=== PATIENT | male | born 1955 | race Caucasian/White ===

== ENCOUNTER → 2017-02-21 | Outpatient (CLI) | payer OTHER | LOC: HRAD 15:25 | PROVIDERS: ATTEND Specialist | DX: R59.9 Enlarged lymph nodes, unspecified (principal) ==

== ENCOUNTER → 2017-02-21 | Outpatient (CLI) | payer OTHER ==
--- NOTE | 2017-02-21 16:07 | RADRPT ---
EXAM DATE/TIME: 02/21/2017 00:00 [facility] COMPARISON: No previous studies available for comparison. OUTSIDE STUDY REVIEWED: INDICATIONS : CT Guided Biopsy of Mediastinal Lymph Node RECOMMENDATION: I have reviewed the PET scan and discussed with both Dr. Barry Flores and Dr. Artis Plaza. Patient will be referred to Dr. Barry Flores for a Veran bronchoscopic lymph node biopsy. Thank you for this consultation. . Mateusz Hernandez MD FACR on February 21, 2017 at 16:03 Board Certified Radiologist. This report was verified electronically.
== END ==
LOC: HRAD 14:24
PROVIDERS: ATTEND Specialist
DX: R59.9 Enlarged lymph nodes, unspecified (principal)
CPT/HCPCS: 76140

== ENCOUNTER 2017-04-17 09:40 | Day surgery (SDC) | payer OTHER ==
--- NOTE | 2017-04-17 08:53 | MB ---
cc: GUSTAVO MOTTA M.D., AWAIS M. MD DOOLIN,Chace TATE DATE OF CONSULTATION 04/14/2017 HISTORY Mr. Dubon is a 61-year-old white male who had a right lung resection in April of last year at [facility] for an adenocarcinoma. Subsequent follow up has been with Dr. Nieves. Original CTs and PET scans were negative for metastatic disease and, although I do not have the surgical pathology report, apparently there was no evidence of metastatic disease. It was classified as a T2 N0 M0 lesion. The patient has been followed carefully and a follow-up scan revealed new mediastinal lymph node enlargement and a very small left lower lobe nodule about 0.4 mm. The patient was originally referred for percutaneous needle aspiration but that was not possible due to the small size of the lung lesion. He subsequently had a PET/CT which revealed uptake throughout the mediastinum but minimal uptake in the lung and some uptake in the right supraclavicular region. He is now referred for possible EBUS. The patient at the present time has no symptoms. He continues to smoke half a pack of cigarettes a day and has smoked his entire adult life 40-50 pack-years. Pulmonary functions do reveal mild obstruction with a moderate reduction in diffusion. However, he has no symptoms. No shortness of breath or cough. No congestion or chest pain. He has had no hemoptysis, in fact he has had no symptoms since his original diagnosis last April. PAST MEDICAL HISTORY 1. Severe lumbosacral degenerative arthritis with multiple levels involved. He takes a gabapentin and tramadol routinely. 2. He has also recently treated for hepatitis C by Dr. Motta. No other major surgeries. No prior history of cardiovascular disease. SOCIAL HISTORY He lives with his girlfriend. Originally from [place], has lived here all of his life, currently living in [place] with his elderly mother whom he helps to care for. 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 Currently unemployed. Smoking noted. Denies current alcohol use. Drank heavily in the past. REVIEW OF SYSTEMS Weight is stable. No chest pain. No swelling in his legs. No abdominal complaints such as reflux. Back pain, chronic. PHYSICAL EXAMINATION VITAL SIGNS: 118/70, pulse 63, temperature is 96, RR 18, sat 97% on room air. HEENT: Sclerae anicteric. Pharynx is clear. NECK: Neck veins are flat. He has a palpable firm lymph node in the right supraclavicular region, none on the left. CHEST: Diminished with some minimal scattered congestion. No wheezing. Regular rhythm. No harsh murmur. No audible S3. ABDOMEN: Soft. No organomegaly. EXTREMITIES: No peripheral edema or cyanosis. Mr. Dubon has uptake on PET scan and an enlarging left lower lobe nodule as well as mediastinal adenopathy and now a palpable lymph node in the right supraclavicular region. This is certainly suspicious for metastatic disease. In light of the palpable lymph node on the right, I will speak to radiology and see if we can biopsy that first because obviously if that is malignant it will establish the diagnosis. If not, biopsying the 1.4 cm left lower lobe pulmonary nodule probably would be easily accessible as well and we would proceed with EBUS but at the present time that equipment is down. We have a call into Radiology today. I have also spoken to Dr. Nieves today and hopefully we can quickly establish the diagnosis and then proceed with therapeutic considerations. Dr. Nieves is scheduling him an appointment and follow-up next week and I will see him back in several weeks too to see if any further diagnostic intervention is warranted. R. MD NANCIE Kwan/JULIUS /11:37 AM /8:46 AM
[2017-04-17 10:27] VITALS: BP 140/80; PULSE 52; RESP 14; TEMP 97; O2SAT 100
[2017-04-17 11:25] VITALS: BP 147/84; PULSE 47; RESP 18; TEMP 98.3; O2SAT 100
[2017-04-17 11:40] VITALS: BP 158/85; PULSE 53; RESP 18; O2SAT 100
[2017-04-17] MEDS ORDERED: LIDOCAINE HCL 1% PF 30 ML VIAL ONE (11:48)
--- NOTE | 2017-04-18 07:54 | RADRPT ---
EXAM DATE/TIME: 04/17/2017 10:11 [facility] COMPARISON: No previous studies available for comparison. EXTERNAL COMPARISON: [facility], CT THORAX, W CONTRAST, Apr 03 2017, PET/CT - TUMOR METABOLISM, January 07, 2017, PE T/CT - TUMOR METABOLISM, February 20, 2016. INDICATIONS : Right supraclavicular neck lymph node. MEDICAL HISTORY : Carcinoma, lung. SURGICAL HISTORY : Lung resection. ENCOUNTER: Initial ACUITY: 3 months PAIN SCORE: 5/10 LOCATION: Right neck ORGAN: Right neck SPECIMENS: Three core specimen(s) submitted for pathologic evaluation. DEVICE: 18 gauge Bio Pince needle Post procedure scanning reveals no hematoma or other complication. The possibility does exist that the tissue obtained will be non-diagnostic. If the sample is non-choco gnostic a repeat biopsy or surgical biopsy may need to be performed. TECHNIQUE: 1. Ultrasound guidance for needle biopsy. 2. Needle biopsy. The risks, benefits, and alternatives to ultrasound guided needle biopsy were explained to the patien t in detail including the risk of bleeding and infection. Written and verbal informed consent was ob tained. With the patient on the ultrasound table, images were obtained. Overlying skin was prepped and drape d in the usual sterile fashion and Lidocaine was utilized as a local anesthetic. Under direct ultrasound visualization cores were obtained of the 2 lymph nodes in the right neck, the largest subclavicular node The patient tolerated the procedure well and left the ultrasound suite in stable condition. CONCLUSION: Uncomplicated ultrasound guided needle biopsy. Preliminary pathology interpretation is a cellular specimen. Mateusz Hernandez MD FACR on April 18, 2017 at 7:51 Board Certified Radiologist. This report was verified electronically.
== END 2017-04-17 12:00 | disposition home or self-care (01) ==
LOC: HRAD 09:40 → HRIP 09:45 → HRAD 12:00
PROVIDERS: ATTEND Internal Medicine
DX: C77.0 Secondary and unspecified malignant neoplasm of lymph nodes of head, face and neck (principal); M47.897 Other spondylosis, lumbosacral region; B19.20 Unspecified viral hepatitis C without hepatic coma; Z85.118 Personal history of other malignant neoplasm of bronchus and lung
CPT/HCPCS: 38505; 76942; 88305; 88333; 88341; 88342